=== PATIENT | female | born 1960 | race Caucasian/White ===

== ENCOUNTER → 2021-12-26 | Outpatient (CLI) | payer OTHER | LOC: MHCPAIN 09:27 | DX: M54.81 Occipital neuralgia (principal); M47.812 Spondylosis without myelopathy or radiculopathy, cervical region; M54.2 Cervicalgia; R51.9 Headache, unspecified | CPT/HCPCS: G0463 ==

== ENCOUNTER → 2022-01-23 | Outpatient (CLI) | payer OTHER | LOC: MHCPAIN 10:44 | DX: M54.81 Occipital neuralgia (principal); M54.2 Cervicalgia; M47.812 Spondylosis without myelopathy or radiculopathy, cervical region | CPT/HCPCS: J1040; J1100 ==